=== PATIENT | female | born 1945 | race Caucasian/White ===

== ENCOUNTER 2019-12-26 10:33 | Emergency (ER) | payer MEDICARE, SELFPAY ==
[2019-12-26 10:47] VITALS: BP 181/93; PULSE 83; RESP 16; TEMP 37.1; O2SAT 97
--- NOTE | 2019-12-26 11:00 | ED.SKABFB ---
HPI - Skin/Abscess/Foreign Bdy General Chief complaint: Extremity Injury, Lower Stated complaint: hornet sting/left foot Time Seen by Provider: 12/26/19 10:53 Source: patient and RN notes reviewed Mode of arrival: ambulatory Limitations: no limitations History of Present Illness HPI narrative: Patient presents today complaining of swelling to her left foot after being stung by up to 6 hornets 2 days ago. She feels that she was stung at the base of her toes. She has had some significant swelling and itching since that time. Denies pain. She has been taking Tylenol and using topical Benadryl cream without relief. Denies fever or red streaking. MD complaint: insect bite/sting Related Data Home Medications Medication Instructions Recorded Confirmed lisinopril-hydrochlorothiazide tablet 05/07/19 ascorbic acid (vitamin C) 1,000 mg 1,000 mg PO Q12H 06/14/19 tablet,extended release aspirin 81 mg tablet,delayed 81 mg PO DAILY 06/14/19 release cholecalciferol (vitamin D3) 25 25 mcg PO DAILY 06/14/19 mcg (1,000 unit) capsule vitamin B complex 1 cap PO DAILY 06/14/19 ascorbate calcium (vitamin C) 500 500 mg PO DAILY 10/19/19 mg tablet Allergies Allergy/AdvReac Type Severity Reaction Status Date / Time No Known Allergies Allergy Verified 10/19/19 15:08 Review of Systems Review of Systems: Narrative: CONSTITUTIONAL: Denies body aches, fever, chills, or sweats. EYES: Denies visual changes, redness, or discharge. ENT: Denies rhinorrhea, congestion, sore throat, or otalgia. CARDIOVASCULAR: Denies chest pain, palpitations, or edema. RESPIRATORY: Denies cough or dyspnea. GASTROINTESTINAL: Denies abdominal pain, nausea, vomiting, or diarrhea. GENITOURINARY: Denies dysuria or hematuria. SKIN: Denies rash, itching, or wounds. MUSCULOSKELETAL: Denies back pain, joint pain, or myalgia. Left foot itching and swelling NEUROLOGIC: Denies headache, numbness, tingling, or weakness. PSYCH: Denies depression or anxiety. [facility] Surgical History Surgical History H/O cataract extraction Family History Family History Mother Hypertension Family history of cardiovascular disease, Onset Age: 40 Cerebrovascular accident Social History Social History Smoking status: Never smoker Alcohol intake: current Comments At time of signature, I have reviewed and agree with nursing past medical, surgical, social and family history unless otherwise noted. Please see nursing chart for further information. There is no relevant family history pertinent to the presenting complaint Exam Narrative: Exam Narrative: GENERAL: Well-appearing, well-nourished, and in no acute distress. HEAD: Normocephalic, atraumatic. EYES: EOMI. No redness or drainage. Conjunctivae normal. ENT: Mucous membranes pink and moist. NECK: Normal AROM. CHEST: No respiratory distress. EXTREMITIES: Moderate swelling extending to the ankle and an erythematous macular rash to the dorsum of the foot. No induration or fluctuance noted. Obvious puncture wound at the base of the first and third toes. Distal sensation intact. Capillary refill normal. Pedal pulse normal. Full range of motion of ankle and all toes. Nontender to palpation. SKIN: Warm, dry, no rash. Capillary refill normal. Normal skin turgor. NEURO: No focal deficits. Alert and oriented x3. Gait steady. PSYCH: Normal affect. No signs of depression or anxiety. Course Vital Signs Vital signs: Vital Signs Temperature 98.7 F 12/26/19 10:47 Pulse Rate 83 12/26/19 10:47 Respiratory Rate 16 12/26/19 10:47 Blood Pressure 181/93 H 12/26/19 10:47 Pulse Oximetry 97 12/26/19 10:47 Temperature 98.7 F 12/26/19 10:47 Pulse Rate 83 12/26/19 10:47 Respiratory Rate 16 12/26/19 10:47 Blood Pr
== END 2019-12-26 11:13 | disposition home or self-care (01) ==
PROVIDERS: Emergency Provider Nurse Practitioner; PCP Family Medicine
DX: T63.451A Toxic effect of venom of hornets, accidental (unintentional), initial encounter (principal); E78.00 Pure hypercholesterolemia, unspecified; I10 Essential (primary) hypertension
CPT/HCPCS: 99213; G0463

== ENCOUNTER → 2020-06-03 10:06 | Outpatient (CLI) | payer MEDICARE, SELFPAY ==
--- NOTE | ~2020-06-03 | XR_ITS ---
XR lumbar spine 2-3V 06/03/2020 10:47 Indication: Back pain and radiculopathy Procedure: 3 views lumbar spine Comparison: 06/25/2010 Findings: Vertebral body heights are maintained. There is disc narrowing at L2-3, L4-5 and L5-S1. The re is moderate multilevel facet hypertrophy. Mild levocurvature of the lumbar spine. Pedicles intact. Sacral foramen are symmetric. There is atherosclerosis. Impression: 1: Moderate lumbar spondylosis. 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 EY HAND Impression: 1: Moderate lumbar spondylosis.
== END ==
PROVIDERS: Visit Provider Physician Assistant
DX: M47.27 Other spondylosis with radiculopathy, lumbosacral region (principal)
CPT/HCPCS: 72100

== ENCOUNTER 2020-08-30 10:00 | Outpatient (CLI) | payer MEDICARE, SELFPAY ==
--- NOTE | ~2020-08-30 | MM_ITS ---
EXAMINATION: MM screening [facility] BI w aly HISTORY: Screening TECHNIQUE: Craniocaudal and mediolateral oblique 3-D tomosynthesis images were obtained and synthetic 2-D images were generated. CAD analysis was submitted and interpreted. COMPARISON: Comparison to multiple prior studies sequentially, with oldest reviewed study dated 03/19. BREAST PARENCHYMAL COMPOSITION: There are scattered areas of fibroglandular density. FINDINGS: There is no evidence of suspicious mass, calcification, or architectural distortion to sugg est malignancy in either breast. There has been no suspicious interval change. IMPRESSION: 1. No mammographic evidence of malignancy. 2. Recommend routine screening mammography in one year. BI-RADS Category 1: Negative Reviewed, dictated and finalized at location A.
== END 2020-08-30 10:01 | disposition home or self-care (01) ==
LOC: ANHIMG 10:01
PROVIDERS: PCP Family Medicine; Visit Provider Physician Assistant
DX: Z12.31 Encounter for screening mammogram for malignant neoplasm of breast (principal)
CPT/HCPCS: 77063; 77067

== ENCOUNTER → 2020-11-30 15:16 | Outpatient (CLI) | payer MEDICARE, SELFPAY ==
--- NOTE | ~2020-11-30 | XR_ITS ---
EXAMINATION: XR shoulder RT min 2V DATE: 11/30/2020 16:17 INDICATION: Right shoulder pain. TECHNIQUE: 4 views of right shoulder were obtained. COMPARISON: None. FINDINGS: Bone alignment is normal. No fracture. There is mild osteoarthritis of glenohumeral joint a nd acromioclavicular joint. There are loose bodies in bicipital groove. IMPRESSION: 1. Mild polyarticular osteoarthritis. 2. Loose bodies in bicipital groove in biceps tendon sheath. 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
--- NOTE | ~2020-11-30 | XR_ITS ---
EXAMINATION: XR finger 3rd RT min 2V DATE: 11/30/2020 16:17 INDICATION: Pain at the right third digit. TECHNIQUE: Dorsal palmar, lateral and 2 oblique views of the right third digit were obtained COMPARISON: None FINDINGS: Bone alignment is normal. No fracture. Polyarticular osteoarthritis, moderate to severe at the trisca phe and first carpal metacarpal joints, moderate severity at the right third proximal and distal inte rphalangeal joints and mild at the second and third metacarpophalangeal joints. No erosions to sugges t an inflammatory arthritis. Periarticular soft tissue swelling at the third proximal interphalangeal joint and to lesser degree at the third metacarpophalangeal joint. IMPRESSION: 1. Polyarticular osteoarthritis, moderate severity at the third proximal and distal interphalangeal j oints and severe at the radial aspect of the carpus. 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 IMPRESSION: 1. Polyarticular osteoarthritis, moderate severity at the third proximal and di stal interphalangeal joints and severe at the radial aspect of the carpus.
== END ==
PROVIDERS: PCP Family Medicine; Visit Provider Physician Assistant
DX: M19.041 Primary osteoarthritis, right hand (principal); M19.011 Primary osteoarthritis, right shoulder; M24.011 Loose body in right shoulder
CPT/HCPCS: 73030; 73140

== ENCOUNTER 2021-03-03 19:24 | Emergency (ER) | payer MEDICARE, SELFPAY ==
[2021-03-03 19:33] VITALS: BP 177/89; PULSE 73; RESP 18; TEMP 36.1; O2SAT 100
--- NOTE | 2021-03-03 19:34 | ED.DIZZY ---
HPI - Dizziness General Chief Complaint: Dizziness Stated Complaint: Dizzy,Nausea Time Seen by Provider: 03/03/21 19:35 Source: patient Mode of arrival: ambulatory Limitations: no limitations History of Present Illness HPI Narrative: Elsy Mcdaniels is a 75 yo female with PMH ohf HTN, high cholesterol, who [facility] with 24 hours of dizziness and nausea and she has tried some [id number] medication for dizziness and also versus Sudafed for pressure in her head. Her blood pressure is elevated tonight at 177/89 Related Data Home Medications Medication Instructions Recorded Confirmed aspirin 81 mg tablet,delayed 81 mg PO DAILY 06/14/19 01/04/21 release vitamin B complex 1 cap PO DAILY 06/14/19 01/04/21 ascorbate calcium (vitamin C) 500 500 mg PO DAILY 10/19/19 01/04/21 mg tablet Allergies Allergy/AdvReac Type Severity Reaction Status Date / Time No Known Allergies Allergy Verified 01/02/21 15:11 Review of Systems Review of Systems: CONSTITUTIONAL: Denies fever, chills, sweats. EYES: Denies visual changes, redness, discharge. ENT: Denies rhinorrhea, congestion, sore throat, otalgia. CARDIOVASCULAR: Denies chest pain, palpitations, edema. RESPIRATORY: Denies dyspnea, wheezing, cough GASTROINTESTINAL: Denies abdominal pain, has nausea, vomiting, diarrhea. GENITOURINARY: Denies dysuria, hematuria, abnormal discharge SKIN: Denies rash or itching. NEUROLOGIC: Denies numbness, or focal weakness. Has dizziness PSYCHIATRIC: Denies anxiety or depression. PMFSH Past Medical History Medical History Mixed hyperlipidemia Surgical History Surgical History H/O cataract extraction Family History Family History Mother Hypertension Family history of cardiovascular disease, Onset Age: 40 Cerebrovascular accident Social History Social History Alcohol intake: current Comments At time of signature, I agree with nursing past medical, surgical, social and family history. There is no relevant family history pertinent to the presenting complaint. Exam Narrative: GENERAL: This is a well-nourished, well-developed patient, in mild distress. HEAD: normocephalic, atraumatic. EYES: PERRL. Sclera clear/white. Vision is grossly intact. EARS: External ears normal, auditory canals clear and without drainage, TMs normal without perforation. Hearing grossly intact. NOSE: External nose normal without nasal discharge, nares without redness, no rhinorrhea. THROAT: Mucous membranes moist, NECK: Neck supple, non-tender CARDIOVASCULAR: Regular rate and rhythm without murmurs, gallops, or rubs. RESPIRATORY: Clear to auscultation. Breath sounds equal bilaterally. No wheezes, rales, or rhonchi. GASTROINTESTINAL: Abdomen soft, SKIN: warm, intact with no suspicious lesions or rash, good texture and turgor. NEURO: awake, alert, and oriented to person, place and time. There were no obvious focal neurologic abnormalities. ussteady gait EXTREMITIES: Normal range of motion. BACK: Nontender without deformity Course Course Emergency Course: Patient comes for 24 hours of dizziness and nausea and has called her PCP who gave her information on [id number] pills for dizziness which she tried with no success UA- 1+ leukocytes, ph 7 EKG- NSR, HR 70, no QT prolongation, no t wave abnormality Transferred to [facility] - spoke with BETTINA Lemus Vital Signs Vital signs: Vital Signs Temperature 96.9 F L 03/03/21 19:33 Pulse Rate 73 03/03/21 19:33 Respiratory Rate 18 03/03/21 19:33 Blood Pressure 177/89 H 03/03/21 19:33 Pulse Oximetry 100 03/03/21 19:33 Temperature 96.9 F L 03/03/21 19:50 Pulse Rate 73 03/03/21 19:50 Respiratory Rate 18 03/03/21 19:50 Blood Pressure 177/89
[2021-03-03 19:50] VITALS: BP 177/89; PULSE 73; RESP 18; TEMP 36.1; O2SAT 100
--- NOTE | 2021-03-03 19:52 | ECG_ITS ---
Measurements Intervals [place] Rate: 70 P: 59 VT: 181 QRS: 47 QRSD: 105 T: 39 QT: 404 QTc: 436 Interpretive Statements SINUS RHYTHM BASELINE ARTIFACT- II, III, AVR, AVL, AVF NORMAL ECG Electronically Signed On 03-04-2021 6:30:44 CDT by Jonas Vanegas D.O.
== END 2021-03-03 20:00 | disposition short-term general hospital (02) ==
PROVIDERS: Emergency Provider Nurse Practitioner; PCP Family Medicine
DX: R42 Dizziness and giddiness (principal); E78.2 Mixed hyperlipidemia
CPT/HCPCS: 81003; 93005; 99213; G0463

== ENCOUNTER 2021-03-03 20:13 | Emergency (ER) | payer MEDICARE, SELFPAY ==
[2021-03-03] VITALS (14 sets, daily range): BP systolic 149–198; BP diastolic 79–101; PULSE 71–82; RESP 12–20; TEMP 36.1; O2SAT 98–100
--- NOTE | ~2021-03-03 | CT_ITS ---
EXAMINATION: CT BRAIN W/O DATE: 03/03/2021 22:24 INDICATION: Dizziness TECHNIQUE: Computed tomography (CT) of the head was performed without intravenous contrast. The dose- length product was 529.67 mGy-cm. Automated exposure control and iterative reconstruction technique w ere employed. COMPARISON: No prior studies for comparison. FINDINGS: Normal brain parenchymal volume for age. Normal agarwal-white differentiation. No acute intrac ranial hemorrhage, infarction, mass or mass effect. No ventriculomegaly or midline shift. Midline sagittal images demonstrate a normal corpus callosum, c raniovertebral junction and sella turcica. Basilar cisterns are patent. Paranasal sinuses and mastoids are pneumatized. No depressed skull fractures. IMPRESSION: 1. No acute intracranial abnormality. 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
--- NOTE | 2021-03-03 20:25 | ECG_ITS ---
Measurements Intervals [place] Rate: 72 P: 56 TN: 193 QRS: 36 QRSD: 92 T: 39 QT: 388 QTc: 426 Interpretive Statements SINUS RHYTHM BASELINE ARTIFACT- II, III, AVF NORMAL ECG Electronically Signed On 03-04-2021 6:31:05 CDT by Jonas Vanegas D.O.
[2021-03-03 21:17] LABS: Basophils Percent Auto 0.3 % (0.2-1.2); Eosinophils Absolute Auto 0.2 K/mm3 (0-0.3); Eosinophils Percent Auto 1.3 % (0-4.4); Hematocrit 35.7 % (37.0-47.0); Hemoglobin 11.9 g/dL (12.0-15.0); Immature Granulocyte Absolute 0.09 K/mm3 (0.00-0.031); Immature Granulocyte Percent A 0.8 % (0-0.5); Lymphocytes Absolute Auto 1.31 K/mm3 (0.9-3.2); Lymphocytes Percent Auto 10.9 % (18.3-44.2); Mean Corpuscular HGB Conc 33.3 g/dl (32-36); Mean Corpuscular Hemoglobin 32.3 pg (26-34); Mean Platelet Volume 8.6 fl (7.4-10.4); Monocytes Absolute Auto 0.7 K/mm3 (0.1-0.6); Monocytes Percent Auto 5.4 % (2.6-8.5); Neutrophils Absolute Auto 9.8 K/mm3 (1.3-6.7); Neutrophils Percent Auto 81.3 % (45.5-73.1); Platelet Count Result 326 k/mm3 (150-375); Red Blood Count 3.68 M/mm3 (4.2-5.4); Red Cell Distribution Width 12.5 % (11.5-14.5)
[2021-03-03 21:30] LABS: Anion Gap 8 mmol/L (8-16); Blood Urea Nitrogen 10 mg/dL (7-17); Calcium 10.1 mg/dL (8.4-10.2); Carbon Dioxide 32 mmol/L (22-30); Chloride 102 mmol/L (98-107); Estimated CRCL calculation 64 ml/min; Estimated Glomerular Filt Rate > 60; Glucose 130 mg/dL (65-110); Potassium 3.5 mmol/L (3.4-5.0); Sodium 142 mmol/L (137-145)
[2021-03-03 21:31] LABS: Alanine Aminotransferase 20 U/L (4-35); Albumin Level 4.8 g/dL (3.5-5.1); Alkaline Phosphatase 61 U/L (38-126); Aspartate Amino Transferase 25 U/L (14-36); Bilirubin,Total 0.3 mg/dL (0.2-1.3)
--- NOTE | 2021-03-03 22:40 | PC.NURSE ---
Patient ambulated to the bathroom with a steady unassisted gait to provide a urine sample.
--- NOTE | 2021-03-03 22:58 | ED.DIZZY ---
HPI - Dizziness General Chief Complaint: Dizziness Stated Complaint: dizziness Time Seen by Provider: 03/03/21 20:47 Source: patient and family Mode of arrival: ambulatory Limitations: no limitations History of Present Illness HPI Narrative: Patient 75 years old white female presented to the ED with sudden onset of dizziness, spinning, everything is wobbly started over 24 hours ago, associated with nausea. Worse with head or body movement, better laying still. Patient denies having similar symptoms. Patient denies focal deficit. Patient denies any fever, chills, abdominal pain, chest pain, shortness of breath,. Patient does not smoke or use drugs, drinks daily. Related Data Home Medications Medication Instructions Recorded Confirmed aspirin 81 mg tablet,delayed 81 mg PO DAILY 06/14/19 03/03/21 release vitamin B complex 1 cap PO DAILY 06/14/19 03/03/21 ascorbate calcium (vitamin C) 500 500 mg PO DAILY 10/19/19 03/03/21 mg tablet Allergies Allergy/AdvReac Type Severity Reaction Status Date / Time No Known Allergies Allergy Verified 03/03/21 20:21 Review of Systems Review of Systems: CONSTITUTIONAL: Denies fever, chills, or sweats. EYES: Denies visual changes, redness, or discharge. ENT: Denies rhinorrhea, congestion, sore throat, or otalgia. CARDIOVASCULAR: Denies chest pain, palpitations, or edema. RESPIRATORY: Denies cough or dyspnea. GASTROINTESTINAL: Denies abdominal pain, nausea, vomiting, or diarrhea. GENITOURINARY: Denies dysuria or hematuria. SKIN: Denies rash or itching. MUSCULOSKELETAL: Denies back pain, joint pain, or myalgia. NEUROLOGIC: Denies headache, numbness, or weakness. PSYCHIATRIC: Denies anxiety or depression. [facility] Past Medical History Medical History Mixed hyperlipidemia Surgical History Surgical History H/O cataract extraction Family History Family History Mother Hypertension Family history of cardiovascular disease, Onset Age: 40 Cerebrovascular accident Social History Social History Alcohol intake: current Exam Narrative: General appearance: Well-developed, well-nourished Skin: Normal color Head: Normocephalic, nontraumatic Eyes: Clear conjunctiva ENT: Oropharynx normal, ears normal, nose normal Neck: Supple, nontender Chest and respiratory: Airway patent, no respiratory distress, no accessory muscle use Heart: Regular rate/rhythm Abdomen: Soft, nontender, no organomegaly, quiet bowel sounds Vascular: Normal peripheral pulses, normal capillary refill. Musculoskeletal: Normal range of motion, nontender back Neurologic: Alert and oriented ?3, MANAGER ENGINE is normal as tested, no gross motor deficit Course Course Emergency Course: Improving Vital Signs Vital signs: Vital Signs Temperature 36.1 C L 03/03/21 20:16 Pulse Rate 80 03/03/21 20:16 Respiratory Rate 20 03/03/21 20:16 Blood Pressure 196/95 H 03/03/21 20:16 Pulse Oximetry 99 03/03/21 20:16 Temperature 36.9 C 03/04/21 00:08 Pulse Rate 75 03/04/21 00:08 Respiratory Rate 17 03/04/21 00:08 Blood Pressure 152/81 H 03/04/21 00:08 Pulse Oximetry 98 03/04/21 00:08 MDM - Dizziness MDM Narrative Medical decision making narrative: Benign positional vertigo is my concern. Labs, CT head, 5 mg of Valium, 8 mg of Zofran and 25 mg of Antivert orally ordered. Differential Diagnosis Differential diagnosis: Likely benign paroxysmal positional vertigo and orthostatic hypotension Lab Data Result diagram
[2021-03-03] MEDS: ONDANSETRON HCL ODT 4 MG TABLET 8 MG PO (23:26)
[2021-03-03] MEDS: MECLIZINE HCL 25 MG TABLET PO (23:26)
[2021-03-03] MEDS: diazePAM (*CRX) 5 MG TABLET PO (23:26)
[2021-03-03 23:28] LABS: Add Urine Microscopic? NO; Appearance Urine Clear (Clear); Bilirubin Urine Negative (Negative); Blood Urine Negative (Negative); Color Urine Yellow (Yellow); Glucose Urine UA Negative (Negative); Ketones Urine Negative (Negative); Leukocyte Esterase Ur Negative LEU/UL (Negative); Nitrate Urine Negative (Negative); Protein Urine Negative (Negative); Specific Grav Ur 1.009 (1.001-1.035); Urobilinogen Urine Negative mg/dL (<2.0)
[2021-03-04 00:08] VITALS: BP 152/81; PULSE 75; RESP 17; TEMP 36.9; O2SAT 98
== END 2021-03-04 00:10 | disposition home or self-care (01) ==
PROVIDERS: Emergency Provider Emergency Medicine; PCP Family Medicine
DX: H81.10 Benign paroxysmal vertigo, unspecified ear (principal); E78.2 Mixed hyperlipidemia; Z98.49 Cataract extraction status, unspecified eye; Z79.82 Long term (current) use of aspirin
CPT/HCPCS: 36415; 70450; 80048; 80076; 81003; 85025; 93005; 99284; A9270

== ENCOUNTER 2021-09-05 10:04 | Outpatient (CLI) | payer MEDICARE, SELFPAY ==
--- NOTE | ~2021-09-05 | MM_ITS ---
EXAMINATION: MM screening [facility] BI w aly HISTORY: Screening mammogram TECHNIQUE: Craniocaudal and mediolateral oblique 3-D tomosynthesis images were obtained and synthetic 2-D images were generated. CAD analysis was submitted and interpreted. COMPARISON: 08/30/2020, 04/22/2019, 04/20/2018 bilateral screening mammogram examinations BREAST PARENCHYMAL COMPOSITION: There are scattered areas of fibroglandular density. FINDINGS: Occasional benign calcifications. There is no evidence of suspicious mass, calcification, o r architectural distortion to suggest malignancy in either breast. There has been no suspicious inter gentry change. IMPRESSION: 1. No mammographic evidence of malignancy. 2. Recommend routine screening mammography in one year. BI-RADS Category 1: Negative Reviewed, dictated and finalized at location A.
== END 2021-09-05 10:05 | disposition home or self-care (01) ==
LOC: ANHIMG 10:05
PROVIDERS: PCP Family Medicine; Visit Provider Family Medicine
DX: Z12.31 Encounter for screening mammogram for malignant neoplasm of breast (principal)
CPT/HCPCS: 77063; 77067

== ENCOUNTER 2022-05-20 09:49 | Emergency (ER) | payer MEDICARE, SELFPAY ==
[2022-05-20 10:03] VITALS: BP 155/86; PULSE 103; RESP 16; TEMP 37.5; O2SAT 96
--- NOTE | 2022-05-20 10:10 | ED.URI ---
HPI - URI/Sore Throat General Chief Complaint: Upper Respiratory Infection Stated Complaint: Cough Time Seen by Provider: 05/20/22 10:10 Source: patient, RN notes reviewed and old records reviewed Mode of arrival: ambulatory Limitations: no limitations History of Present Illness HPI Narrative: 76-year-old female presents to the [facility] with complaints of a cough for 2 weeks. Have done a conference with her primary care provider who prescribed codeine and Tamiflu, states that they thought she had the flu but never tested. Patient states her symptoms just keeps worse. Denies any chest pain. No shortness of breath. Reports sinus congestion. MD elicited complaint: cough Related Data Home Medications Medication Instructions Recorded Confirmed vitamin B complex (Super B-50 1 cap PO DAILY 06/14/19 03/01/22 Complex capsule) ascorbate calcium (vitamin C) 500 500 mg PO DAILY 10/19/19 03/01/22 mg tablet oseltamivir 75 mg capsule mg 05/20/22 Allergies Allergy/AdvReac Type Severity Reaction Status Date / Time No Known Allergies Allergy Verified 05/20/22 10:13 Review of Systems Review of Systems: All systems reviewed & are unremarkable except as noted in HPI and below Constitutional: Constitutional: Reports no additional constitutional complaints Eyes: Eyes: Reports no additional eye complaints ENT: Reports as per HPI and Reports nasal congestion Cardiovascular: Cardiovascular: Reports no additional cardiovascular complaints, Denies chest pain and Denies dyspnea Respiratory: Respiratory: Reports as per HPI, Denies chest congestion, Reports cough and Denies dyspnea Gastrointestinal: Gastrointestinal: Reports no additional gastrointestinal complaints, Denies abdominal pain, Denies nausea and Denies vomiting Musculoskeletal: Musculoskeletal: Reports no additional musculoskeletal complaints Integumentary/Breasts: Skin/Breast: Reports system reviewed and no additional complaints, except as docu Neurologic: Reports system reviewed and no additional complaints, except as documented Psychiatric: Psychiatric: Reports no additional psychiatric complaints Allergic/Immunologic: Allergic/Immunologic: Reports no additional allergic/immunologic complaints PMFSH Past Medical History Medical History Mixed hyperlipidemia Surgical History Surgical History H/O cataract extraction Family History Family History Mother Hypertension Family history of cardiovascular disease, Onset Age: 40 Cerebrovascular accident Social History Social History Smoking status: Former smoker Smoking end date: 05/19/79 Alcohol intake: current Drinks per week: 7 Substance use: never Additional living arrangements comments: with - [facility] Gender identity (if verbalized by the patient): Female Agree to blood products: Yes Comments At the time of my signature, I reviewed and agree with the nursing past medical, surgical, social, and family history. There is no relevant family history pertinent to the patient complaint. Exam Const: General: cooperative, healthy appearing, comfortable, no acute distress, well developed, alert and well nourished Nutritional Appearance: well nourished Orientation/consciousness: patient oriented x3 Limitations: no limitations HENMT: Head: normal to inspection Ears: hearing grossly normal bilaterally and external ears normal Face/Nose/Sinus: Normal external nose present, Normal nares present, Abnormal mucous membranes and turbinates present boggy; not erythematous and normal facial exam Face and sinus: normal facial exam Mouth: Yes Normal oral and palatal mucosa present, Yes lip normal and Yes moist mucous membranes Throat: posterior oropharynx normal and uvula midline Ey
== END 2022-05-20 10:37 | disposition home or self-care (01) ==
PROVIDERS: Emergency Provider Nurse Practitioner; PCP Family Medicine
DX: J32.9 Chronic sinusitis, unspecified (principal); J40 Bronchitis, not specified as acute or chronic; Z87.891 Personal history of nicotine dependence; E78.2 Mixed hyperlipidemia
CPT/HCPCS: 99213; G0463

== ENCOUNTER → 2022-05-24 14:59 | Outpatient (CLI) | payer MEDICARE, SELFPAY ==
--- NOTE | ~2022-05-24 | XR_ITS ---
XR chest 2V 05/24/2022 15:16 Indication: Cough. Procedure: 2 view chest Comparison: No prior studies for comparison. Findings: Heart size normal. There is left lower lobe atelectasis. No focal pneumonia, edema, pleural effusion or pneumothorax. No acute osseous abnormality. Impression: 1: Left lower lobe atelectasis. 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
== END ==
PROVIDERS: PCP Family Medicine; Visit Provider Family Medicine
DX: J39.8 Other specified diseases of upper respiratory tract (principal)
CPT/HCPCS: 71046

== ENCOUNTER → 2022-08-02 15:39 | Outpatient (CLI) | payer MEDICARE, SELFPAY ==
--- NOTE | ~2022-08-02 | XR_ITS ---
XR lumbar spine min 4V 08/02/2022 15:57 Indication: Low back pain Procedure: 5 views lumbar spine Comparison: 06/03/2020 Findings: There is disc narrowing at all lumbar levels most advanced at L2-3 and L5-S1. There is face t hypertrophy from L3-4 through L5-S1. There is grade 1 degenerative spondylolisthesis at L4-5. No ac remi fracture or traumatic malalignment. There is atherosclerosis. Impression: 1: Moderate-severe lumbar spondylosis with progression since prior study. 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 Impression: 1: Moderate-severe lumbar spondylosis with progression since prior study.
--- NOTE | ~2022-08-02 | XR_ITS ---
XR hip RT min 2V 08/02/2022 15:58 Indication: Status post fall one year ago. Right hip pain. Procedure: 2 views right hip Comparison: No prior studies for comparison. Findings: There is moderate osteoarthritis of the right hip. Normal mineralization. No fracture or tr aumatic malalignment. No significant soft tissue abnormality. No foreign bodies. There are amorphous calcifications in the pelvis, possibly related to calcified uterine fibroid. Impression: 1: Moderate osteoarthritis of the right hip. 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 Impression: 1: Moderate osteoarthritis of the right hip.
== END ==
PROVIDERS: PCP Family Medicine; Visit Provider Family Medicine
DX: M47.896 Other spondylosis, lumbar region (principal); M16.11 Unilateral primary osteoarthritis, right hip
CPT/HCPCS: 72110; 73502

== ENCOUNTER 2022-08-26 10:51 | Outpatient (RCR) | payer MEDICARE, SELFPAY ==
--- NOTE | 2022-08-26 16:32 | PTOPEVAL1 ---
Assessment and note entered by Josue Laguna, PT, DPT Evaluation Information Assessment Status Evaluation Diagnosis R hip pain Onset 3-4 months Subjective Information Pt states her R hip has been causing her pain. She states she only does not have pain when sitting or laying down. Imaging shows moderate hip OA on the R and spondylosis in the lumbar spine. Pt reports 0/10 at rest, and 10/10 at the worst. Pt states she likes to garden and take care of her home. Reported Pain Level Pain Score 0: Self Report Assessment PT Clinical Summary Elsy presents to therapy today for her initial evaluation with a diagnosis of lumbar spondylosis and R hip OA. Today she demonstrates decreased hip strength matt, decreased core strength, and decreased body awareness with functional movements . She reports tenderness to palpation throughout her entire lumbosacral region. Skilled physical therapy services are indicated to address the deficits noted above, to improve movement mechanics , to manage pain, and to promote unlimited functional mobility. Plan of Care Interventions Electrical Stimulation,Gait Training,Hot Pack/Cold Pack,Manual Therapy,Neuro Re-education,Patient/ Caregiver Educati,Therapeutic Activities, Therapeutic Exercise PT Services Indicated Yes Treatment Frequency and 2x/wk for 4wks Duration These treatments will address the objective and functional deficits as defined above. The patient will be advanced safely and appropriately in order for the patient to progress towards his/her prior level of function. Additional exercises will be introduced and as well as a comprehensive home exercise program upon discharge, if needed, ?to ensure carryover of functional gains achieved in the clinic. This treatment plan has been reviewed and agreement upon by the patient.
--- NOTE | 2022-08-27 15:20 | PTOPDC ---
Assessment and note entered by Josue Laguna, PT, DPT Evaluation Information Assessment Status Discharge - Pt Not Present Diagnosis R hip pain Onset 3-4 months Subjective Information Pt called and cancelled all of her remaining appointments and states she does not want to continue therapy. Assessment PT Clinical Summary Pt was evaluated on 08/26/22 and called today, 08/27 to cancel all of her appointment. She will be discharged at this time per patient request. Plan of Care PT Services Indicated Yes
== END 2022-09-16 08:36 | disposition home or self-care (01) ==
LOC: ANHGOSHPT 10:51
PROVIDERS: PCP Family Medicine; Visit Provider Family Medicine
DX: M16.10 Unilateral primary osteoarthritis, unspecified hip (principal); M47.9 Spondylosis, unspecified
CPT/HCPCS: 97110; 97112; 97161

== ENCOUNTER 2022-10-16 09:31 | Outpatient (CLI) | payer MEDICARE, SELFPAY ==
--- NOTE | ~2022-10-16 | MM_ITS ---
EXAMINATION: MM screening bowen BI w aly HISTORY: Screening mammogram TECHNIQUE: Craniocaudal and mediolateral oblique 3-D tomosynthesis images were obtained and synthetic 2-D images were generated. CAD analysis was submitted and interpreted. COMPARISON: 09/05/2021, 08/30/2020, 04/22/2019 bilateral screening mammogram examinations BREAST PARENCHYMAL COMPOSITION: There are scattered areas of fibroglandular density. FINDINGS: Stable small circumscribed benign-appearing intramammary lymph node in the outer mid right breast. Occasional benign calcifications. There is no evidence of suspicious mass, calcification, or architectural distortion to suggest malignancy in either breast. There has been no suspicious interva l change. IMPRESSION: 1. No mammographic evidence of malignancy. 2. Recommend routine screening mammography in one year. BI-RADS Category 2: Benign finding(s). 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
== END 2022-10-16 09:32 | disposition home or self-care (01) ==
LOC: ANHIMG 09:32
PROVIDERS: PCP Family Medicine; Visit Provider Family Medicine
DX: Z12.31 Encounter for screening mammogram for malignant neoplasm of breast (principal)
CPT/HCPCS: 77063; 77067

== ENCOUNTER 2023-11-29 15:56 | Emergency (ER) | payer MEDICARE, SELFPAY ==
--- NOTE | ~2023-11-29 | CT_ITS ---
Noncontrast CT scan of the cervical spine Technique: Multiple contiguous axial [address] images of the cervical spine were obtained and rec onstructed in 2D sagittal and coronal planes on the acquisition scanner. Dose reduction technique was used on this scan by utilizing automated exposure control, adjustment of the mA and/or kV according to patient size. The dose-length product (DLP) was 216.38 mGy-cm. Clinical History: Pain Findings: No fracture identified. There is 2 mm anterolisthesis of C4 over C5. There is reversal of t he normal cervical lordosis. There is advanced degenerative disc narrowing at C6-C7. There is moderat e degenerative disc narrowing at the remaining cervical levels. There is probable mild left neural fo raminal narrowing at C4-C5, probable left facet arthropathy. There is is right neural foraminal narro wing at C5-C6, with right facet arthropathy. There is probable mild bilateral neural foraminal narrow ing at C6-C7. No prevertebral soft tissue swelling. Impression: No acute fracture. 2 mm anterolisthesis of C4 over C5, likely chronic. Moderate to advanced degenerative spondylosis, as above. Reviewed, dictated and finalized at location . Impression: No acute fracture. 2 mm anterolisthesis of C4 over C5, likely chronic. Moderate to advanced degenerative spondylosis, as above.
--- NOTE | ~2023-11-29 | CT_ITS ---
Non-contrast Head CT History: Status post fall COMPARISON: 03/03/2021 Technique: Axial non-contrast imaging of the brain was performed. Dose reduction technique was used on this scan by utilizing automated exposure control and iterative reconstruction technique. The dose -length product (DLP) was 529.67 mGy-cm. Findings: There is no evidence of intracranial hemorrhage, mass lesion, or acute infarct. Brain par enchyma appears normal. The ventricles and subarachnoid spaces are normal in size. The calvarium ap pears normal. The visualized paranasal sinuses and mastoid air cells are clear. Impression: No significant abnormality seen. Reviewed, dictated and finalized at location . Impression: No significant abnormality seen.
[2023-11-29 15:57] VITALS: BP 162/83; PULSE 92; RESP 16; TEMP 36.4; O2SAT 97
--- NOTE | 2023-11-29 17:02 | ED.GENADULT ---
HPI - General Adult General Chief complaint: Fall Stated complaint: fall, hit head Time Seen by Provider: 11/29/23 16:33 History of Present Illness HPI narrative: patient is a 78-year-old female who presents emergency department with chief complaint of head injury. Patient reports that she was working on her nails was sitting on the edge of the bathtub in the bathtub Jeff slid out from underneath her and she fell backwards and struck her head against the soap dish in patient reports no loss of consciousness denies being on blood thinners reports that she had her last tetanus in 2014 Related Data Allergies Allergy/AdvReac Type Severity Reaction Status Date / Time No Known Allergies Allergy Verified 11/29/23 16:11 Review of Systems Review of Systems: A 10 system review of systems was completed on the patient and is negative except for what is stated in the HPI. Nursing and ancillary documentation was reviewed. PMFSH Past Medical History Medical History Mixed hyperlipidemia Surgical History Surgical History H/O cataract extraction Family History Family History Mother Hypertension Family history of cardiovascular disease, Onset Age: 40 Cerebrovascular accident Social History Social History Smoking status: Former smoker Smoking end date: 05/19/79 Alcohol intake: current Drinks per week: 14 Substance use: never Lack of Transportation: No Lack of Food: Never True Current Housing: I Have Housing Concerned About Future Housing: No Difficulty Paying Gas/Electric Bills: No Difficulty Paying for Meds: No Currently Unemployed: No Education: High School Diploma/GED Difficulty w/ Childcare or Family Care: No Living arrangements: with family Additional living arrangements comments: with - [place] Occupation/Education: retired Gender identity (if verbalized by the patient): Female Agree to blood products: Yes Exam Narrative: GENERAL: Well-appearing, well-nourished, and in no acute distress. HEAD: Normocephalic, 1 cm laceration to the scalp. EYES: PERRLA and EOMI. ENT: Nares clear, no rhinorrhea or epistaxis. Mucous membranes moist. NECK: Supple. CHEST: Clear to auscultation. No respiratory distress. HEART: Regular rate and rhythm. No murmur heard. Normal peripheral pulses. ABDOMEN: Soft, nontender, nondistended, normal active bowel sounds. EXTREMITIES: Normal range of motion. No edema. SKIN: Warm, dry, no rash. NEURO: No focal deficits. Alert and oriented x3. PSYCH: Normal mood and affect. Course Vital Signs Vital signs: Vital Signs Temperature 36.4 C L 11/29/23 15:57 Pulse Rate 92 11/29/23 15:57 Respiratory Rate 16 11/29/23 15:57 Blood Pressure 162/83 H 11/29/23 15:57 Pulse Oximetry 97 11/29/23 15:57 Oxygen Delivery Room Air 11/29/23 15:57 Temperature 36.4 C L 11/29/23 15:57 Pulse Rate 92 11/29/23 15:57 Respiratory Rate 16 11/29/23 15:57 Blood Pressure 162/83 H 11/29/23 15:57 Pulse Oximetry 97 11/29/23 15:57 Oxygen Delivery Room Air 11/29/23 15:57 Procedures Laceration Laceration 1: Date: 11/29/23 Time: 17:04 Site: scalp Size (cm): 1 Description: linear Depth: simple, single layer Local Anesthetic: none Pre-repair: wound explored and irrigated ====== Skin Level ====== Skin layer closed with: curt Number of sutures: 1 ====== Subcutaneous Layer ====== ====== Muscle Layer ====== ====== Tendon Layer ====== Medical Decision Making [facility] Narrative Medical decision making narrative: differential diagnosis includes intracranial hemorrhage, scalp laceration, closed he
[2023-11-29] MEDS: TETANUS,DIPHTHERIA,AC PERTUSSIS ADULT (0.5 ML) BOOSTRIX IM (17:22)
[2023-11-29] MEDS: ACETAMINOPHEN 500 MG TABLET 1000 MG PO (17:23)
== END 2023-11-29 17:28 | disposition home or self-care (01) ==
PROVIDERS: Emergency Provider Emergency Medicine; PCP Family Medicine
DX: S01.01XA Laceration without foreign body of scalp, initial encounter (principal); Z23 Encounter for immunization; E78.2 Mixed hyperlipidemia; Z87.891 Personal history of nicotine dependence; W17.89XA Other fall from one level to another, initial encounter
CPT/HCPCS: 12001; 70450; 72125; 90471; 90715; 99284; A9270